=== PATIENT | male | born 1985 | race Caucasian/White ===

== ENCOUNTER → 2016-10-19 | Outpatient (REF) | LOC: ZLAB.WCH 11:34 | DX: Z01.89 Encounter for other specified special examinations (principal) ==

== ENCOUNTER → 2016-10-19 | Outpatient (REF) ==
[2016-10-19 15:34] LABS: CHLAMYDIA/TRACH by PCR Male Not Detected; Neisseria Gon by PCR Male Not Detected
== END ==
LOC: ZLAB.WCH 13:15
PROVIDERS: Nurse Practitioner Family
DX: Z01.89 Encounter for other specified special examinations (principal)

== ENCOUNTER → 2020-03-25 | Outpatient (CLI) | payer SELFPAY | LOC: COL.RAD 13:51 | DX: M25.461 Effusion, right knee (principal); S83.511A Sprain of anterior cruciate ligament of right knee, initial encounter; G89.29 Other chronic pain ==